=== PATIENT | male | born 1925 | race Caucasian/White ===

== ENCOUNTER 2016-05-10 21:21 | Inpatient (IN) | payer MEDICARE, BC ==
[2016-05-10] MEDS ORDERED: ASPIRIN 81 MG CHEW PO STA (21:45)
[2016-05-10] MEDS ORDERED: SODIUM CHLORIDE 0.9% 1,000 ML IV STA (21:45)
[2016-05-10] MEDS ORDERED: ONDANSETRON 4 MG/2 ML VIAL IVP STA (21:45)
[2016-05-10] MEDS ORDERED: NITROGLYCERIN OINT 1 INCH/GM PACKET TOPICAL STA (21:45)
--- NOTE | 2016-05-10 21:52 | ED ---
General Adult HPI - General Chief complaint: Chest Pain Stated complaint: chest pains Time Seen by Provider: 05/10/16 21:27 Source: patient, family, EMS, RN notes reviewed Mode of arrival: EMS Limitations: no limitations - History of Present Illness Initial comments: Patient is a pleasant 89-year-old male presenting to the emergency department complaining of chest discomfort. Onset of symptoms was less than an hour prior to arrival. Discomfort is currently 4/10. Patient does have associated nausea and did vomit twice. No dyspnea. No diaphoresis. No history of some her symptoms previous a. Patient states that has been several years since he has had a stress test. No leg pain or swelling. - Related Data Home Medications Medication Instructions Recorded Confirmed Aspirin EC [Ecotrin Low Dose] 81 mg PO DAILY 05/10/16 05/10/16 Atorvastatin [Lipitor] 20 mg PO HS 05/10/16 05/10/16 B Complex & C No.20/Folic Acid 1 mg PO DAILY 05/10/16 05/10/16 [Nephrocaps Softgel] Folic Acid 0.4 mg PO DAILY 05/10/16 05/10/16 Losartan Potassium [Cozaar] 50 mg PO DAILY 05/10/16 05/10/16 Metoprolol Succinate (ER) [Toprol 50 mg PO DAILY 05/10/16 05/10/16 Xl] Allergies Allergy/AdvReac Type Severity Reaction Status Date / Time No Known Allergies Allergy Verified 05/10/16 21:47 Review of Systems ROS Statement: Those systems with pertinent positive or pertinent negative responses have been documented in the HPI. ROS Other: All systems not noted in ROS Statement are negative. Constitutional: Denies: fever Eyes: Denies: eye pain ENT: Denies: ear pain Respiratory: Denies: cough, dyspnea Cardiovascular: Reports: chest pain Endocrine: Denies: fatigue Gastrointestinal: Reports: nausea, vomiting. Denies: abdominal pain Genitourinary: Denies: dysuria Musculoskeletal: Denies: back pain Skin: Denies: rash Neurological: Denies: weakness Past Medical History Past Medical History: Coronary Artery Disease (CAD), Hypertension Additional Past Medical History / Comment(s): high cholesterol History of Any Multi-Drug Resistant Organisms: None Reported Additional Past Surgical History / Comment(s): cataract, left hip Past Psychological History: No Psychological Hx Reported Smoking Status: Never smoker Past Alcohol Use History: None Reported Past Drug Use History: None Reported General Exam Limitations: no limitations General appearance: alert, in no apparent distress Head exam: Present: atraumatic Eye exam: Present: normal appearance, PERRL ENT exam: Present: normal oropharynx Neck exam: Present: normal inspection Respiratory exam: Present: normal lung sounds bilaterally Cardiovascular Exam: Present: regular rate, normal rhythm Expanded Peripheral pulses: 2+: Radial (R), Radial (L), Posterior Tibialis (R), Posterior Tibialis (L) GI/Abdominal exam: Present: soft. Absent: tenderness Extremities exam: Present: normal inspection. Absent: pedal edema, calf tenderness Neurological exam: Present: alert Psychiatric exam: Present: normal affect, normal mood Skin exam: Absent: rash Course Vital Signs 05/10/16 05/10/16 05/10/16 21:24 21:52 22:08 Temperature 98 F Pulse Rate 61 50 L 53 L Respiratory 14 20 18 Rate Blood Pressure 139/63 87/54 O2 Sat by Pulse 92 L 95 97 Oximetry EKG Findings - EKG Comments: EKG Findings:: Sinus bradycardia 55. QRS 122. QT 448. QTC 428. Normal axis. Right bundle branch block. No acute ST change. Medical Decision Making - Medical Decision Making Patient reexamined and improved. Discomfort and nausea are mild at this time. Patient and family were updated on results and plan. Case was discussed in detail with Dr. Silverman, who will admit for Dr. Barajas. Consult placed for Dr. Walker who patient has previously seen with gastroenterology. - Lab Data Result diagrams: 05/10/16 21:50 05/10/16 21:50 Lab Results 05/10/16 05/10/16 05/10/16 Range/Units 21:50 21:50 21:50 WBC 10.8 H (3.8-10.6) k/uL RBC 3.30 L (4.30-5.90) m/uL Hgb 11.2 L (13.0-17.5) gm/dL Hct 34.0 L (39.0-53.0) % MCV 103.2 H (80.0-100.0) fL MCH 34.0 (25.0-35.0) pg MCHC 33.0 (31.0-37.0) g/dL RDW 13.8 (11.5-15.5) % Plt Count 270 (150-450) k/uL Neutrophils % 80 % Lymphocytes % 14 % Monocytes % 2 % Eosinophils % 2 % Basophils % 1 % Neutrophils # 8.6 H (1.3-7.7) k/uL Lymphocytes # 1.5 (1.0-4.8) k/uL Monocytes # 0.3 (0-1.0) k/uL Eosinophils # 0.2 (0-0.7) k/uL Basophils # 0.1 (0-0.2) k/uL Macrocytosis Slight PT (9.0-12.0) sec INR (<1.1) APTT (22.0-30.0) sec Sodium 137 (137-145) mmol/L Potassium 4.2 (3.5-5.1) mmol/L Chloride 103 (98-107) mmol/L Carbon Dioxide 23 (22-30) mmol/L Anion Gap 11 mmol/L BUN 22 H (9-20) mg/dL Creatinine 1.40 H (0.66-1.25) mg/dL Est GFR (MDRD) Af Amer 58 (>60 ml/min/1.73 sqM) Est GFR (MDRD) Non-Af 48 (>60 ml/min/1.73 sqM) Glucose 120 H (74-99) mg/dL Calcium 9.1 (8.4-10.2) mg/dL Magnesium 1.7 (1.6-2.3) mg/dL Total Bilirubin 1.2 (0.2-1.3) mg/dL AST 162 H (17-59) U/L ALT 89 H (21-72) U/L Alkaline Phosphatase 104 (38-126) U/L Total Creatine Kinase 37 L (55-170) U/L CK-MB (CK-2) 0.4 (0.0-2.4) ng/mL CK-MB (CK-2) Rel Index 1.1 Troponin I <0.012 (0.000-0.034) ng/mL Total Protein 6.7 (6.3-8.2) g/dL Albumin 3.7 (3.5-5.0) g/dL Amylase (30-110) U/L Lipase (23-300) U/L Gastric Occult Blood (Negative) 05/10/16 05/10/16 05/10/16 Range/Units 21:50 21:50 22:21 WBC (3.8-10.6) k/uL RBC (4.30-5.90) m/uL Hgb (13.0-17.5) gm/dL Hct (39.0-53.0) % MCV (80.0-100.0) fL MCH (25.0-35.0) pg MCHC (31.0-37.0) g/dL RDW (11.5-15.5) % Plt Count (150-450) k/uL Neutrophils % % Lymphocytes % % Monocytes % % Eosinophils % % Basophils % % Neutrophils # (1.3-7.7) k/uL Lymphocytes # (1.0-4.8) k/uL Monocytes # (0-1.0) k/uL Eosinophils # (0-0.7) k/uL Basophils # (0-0.2) k/uL Macrocytosis PT 10.7 (9.0-12.0) sec INR 1.1 (<1.1) APTT 23.2 (22.0-30.0) sec Sodium (137-145) mmol/L Potassium (3.5-5.1) mmol/L Chloride (98-107) mmol/L Carbon Dioxide (22-30) mmol/L Anion Gap mmol/L BUN (9-20) mg/dL Creatinine (0.66-1.25) mg/dL Est GFR (MDRD) Af Amer (>60 ml/min/1.73 sqM) Est GFR (MDRD) Non-Af (>60 ml/min/1.73 sqM) Glucose (74-99) mg/dL Calcium (8.4-10.2) mg/dL Magnesium (1.6-2.3) mg/dL Total Bilirubin (0.2-1.3) mg/dL AST (17-59) U/L ALT (21-72) U/L Alkaline Phosphatase (38-126) U/L Total Creatine Kinase (55-170) U/L CK-MB (CK-2) (0.0-2.4) ng/mL CK-MB (CK-2) Rel Index Troponin I (0.000-0.034) ng/mL Total Protein (6.3-8.2) g/dL Albumin (3.5-5.0) g/dL Amylase 2010 H* (30-110) U/L Lipase >70695 H (23-300) U/L Gastric Occult Blood Positive (Negative) - Radiology Data Radiology results: image reviewed (Chest x-ray shows no acute process.) Disposition Clinical Impression: Acute pancreatitis Disposition: ADMITTED IP TO THIS HOSP
[2016-05-10] MEDS ORDERED: METOCLOPRAMIDE 5 MG/ML 2 ML VIAL IVP STA (21:59)
[2016-05-10] MEDS ORDERED: FAMOTIDINE 20 MG/2 ML VIAL IV STA (21:59)
[2016-05-10 22:03] LABS: Basophils # (A) 0.1 k/uL (0-0.2); Basophils % (A) 1 %; CH 34.8; CHCM 33.9; Eosinophils # (A) 0.2 k/uL (0-0.7); Eosinophils % (A) 2 %; HDW 2.64; HGB 11.2 gm/dL (13.0-17.5); Luc # (Auto) 0.15; Luc % (Auto) 1; Lymphocytes # (A) 1.5 k/uL (1.0-4.8); Lymphocytes % (A) 14 %; MCV 103.2 fL (80.0-100.0); Macrocytosis Slight; Mean Platelet Volume 8.1; Monocytes # (A) 0.3 k/uL (0-1.0); Monocytes % (A) 2 %; Neutrophils # (A) 8.6 k/uL (1.3-7.7); Neutrophils % (A) 80 %; RDW 13.8 % (11.5-15.5); WBC 10.8 k/uL (3.8-10.6); WBC (Perox) 10.76
[2016-05-10 22:11] LABS: INR 1.1 (<1.1); Partial Thromboplastin Time 23.2 sec (22.0-30.0); Prothrombin Time 10.7 sec (9.0-12.0)
[2016-05-10 22:12] LABS: Calcium 9.1 mg/dL (8.4-10.2); Magnesium 1.7 mg/dL (1.6-2.3); Potassium 4.2 mmol/L (3.5-5.1); Total Bilirubin 1.2 mg/dL (0.2-1.3); Total Protein 6.7 g/dL (6.3-8.2)
[2016-05-10 22:29] LABS: Creatine Kinase 37 U/L (55-170)
[2016-05-10 22:42] LABS: Creatine Kinase MB 0.4 ng/mL (0.0-2.4); Troponin I <0.012 ng/mL (0.000-0.034)
[2016-05-10 22:59] LABS: Amylase 2011 U/L (30-110)
--- NOTE | 2016-05-10 23:11 | XR ---
EXAMINATION TYPE: XR chest 2V DATE OF EXAM: 05/10/2016 10:40 PM COMPARISON: 09/06/2010, CT abdomen and pelvis 09/10/2010. HISTORY: Vomiting chest pain history of CT TECHNIQUE: Frontal and lateral views of the chest are obtained. FINDINGS: Mild chronic interstitial lung changes are suggested bilaterally. Faint opacities are noted in the ri ght midlung field and there is possibility of mild active infiltrates in the right perihilar area. No pneumothorax or pleural effusion is noted. Faint nodularity is noted superimposing the right lower lung field and is probably related to old hea led calcified granuloma measuring approximately 1.8 cm. This could also be related to costochondral c alcification. Atherosclerotic calcification is noted in the aortic arch. The cardiac silhouette size is within normal limits. The osseous structures are intact. IMPRESSION: 1. Possible mild right perihilar lung infiltrates. 2. Chronic lung changes. 3. Possible calcified nodule or costochondral calcification in the right lung base. [facility] helpful in the evaluation on non-emergency basis.
[2016-05-10] MEDS ORDERED: NALOXONE 0.4 MG/ML 1 ML VIAL IV PRN (23:48)
[2016-05-10] MEDS ORDERED: ONDANSETRON 4 MG/2 ML VIAL IVP PRN (23:48)
[2016-05-10 23:49] LABS: Appearance,Urine Cloudy (Clear); Bacteria,Urine Few /hpf; Bilirubin,Urine Negative (Negative); Glucose,Urine (UA) Negative (Negative); Ketones,Urine Negative (Negative); Leukocyte Esterase,Urine Large (Negative); Mucus,Urine Rare /hpf; Nitrite,Urine Positive (Negative); Particle Count 26368; Protein,Urine Negative (Negative); RBC,Urine 2 /hpf (0-5); Specific Gravity,Urine 1.007 (1.001-1.035); UA Billing (MACRO vs. MICRO) MICRO; Urobilinogen,Urine <2.0 mg/dL (<2.0); WBC,Urine 120 /hpf (0-5)
[2016-05-11] MEDS: MORPHINE SULFATE 4 MG/ML SYRINGE IV PRN ×3 (00:04→23:39)
[2016-05-11] MEDS: SODIUM CHLORIDE 0.9% 1,000 ML IV SCH ×3 (00:05→17:08)
[2016-05-11 02:36] VITALS: BMI 19.0
[2016-05-11 03:59] LABS: Calcium 8.5 mg/dL (8.4-10.2); Potassium 4.3 mmol/L (3.5-5.1); Total Bilirubin 1.1 mg/dL (0.2-1.3); Total Protein 5.8 g/dL (6.3-8.2)
--- NOTE | 2016-05-11 09:47 | US ---
EXAMINATION TYPE: US abdomen limited DATE OF EXAM: 05/11/2016 8:33 AM COMPARISON: NONE CLINICAL HISTORY: 84-year-old male with pain, evaluate right upper quadrant and pancreas. TECHNIQUE: Multiple sonographic images of the right upper quadrant were obtained. FINDINGS: Liver Length: 11.9 cm Gallbladder Wall: 0.5 cm CBD: 1.1 cm Right Kidney: 7.4 x 3.7 x 3.2 cm Pancreas: Obscured by extensive overlying bowel gas Liver: Overall homogeneous echotexture. No focal lesion seen. Gallbladder: There is circumferential gallbladder wall thickening at 5 mm. While the gallbladder is full, it is not abnormally distended. No pericholecystic fluid seen. No shadowing calculi. Evidence for sonographic Marsh's sign: No CBD: dilated Right Kidney: Atrophic without hydronephrosis. IMPRESSION: 1. Nonspecific gallbladder wall thickening. No ancillary findings of acute cholecystitis. Correlate f or potential reactive causes of wall thickening such as fluid overload states or any adjacent inflamm ation such as from the liver or pancreas. 2. Dilatation of the bile duct at 1.1 cm. Correlate with alkaline phosphatase and bilirubin levels to exclude biliary obstruction. 3. The pancreas was obscured by bowel gas and is not assessed on this exam.
[2016-05-11] MEDS: PANTOPRAZOLE 40 MG/10 ML VIAL IV SCH (11:58)
--- NOTE | 2016-05-12 07:23 | HP ---
DATE OF ADMISSION: 05/10/2016 DATE OF SERVICE: 05/11/2016 CHIEF COMPLAINT: Chest pain, nausea and vomiting. This is an 89-year-old white male who apparently started feeling chest pain, nausea and vomiting of one hour duration and patient was brought to the emergency room. In the ER, his EKG did not show any acute changes. Cardiac enzymes were within normal limits. WBC 10.8, hemoglobin 11.2, platelet count 278,000, sodium 137, potassium 4.2, creatinine 1.40, BUN 22, glucose 120 and chest x-ray within normal limits. The serum blood chemistry also showed that his amylase and lipase were markedly elevated. Amylase was 2011 and lipase more than 20,000. The patient was admitted to the hospital for further evaluation and treatment. Patient had no blood in the vomitus and he denies any diarrhea or rectal bleeding, but his stool was positive occult blood. His past medical history reveals that he has coronary artery disease and has had a stent placement in the past. He also has hypertensive cardiovascular disease, hyperlipidemia and he also has a history of acute pancreatitis about 8 years ago. His current medications include: 1. Aspirin 81 mg p.o. daily. 2. Lipitor 20 mg p.o. daily. 3. He is also taking vitamins. 4. Losartan. 5. Potassium 50 mg p.o. daily. 6. Metoprolol ER 50 mg p.o. daily. He does not smoke and he does not drink alcohol except socially. FAMILY HISTORY: Noncontributory. REVIEW OF SYSTEMS: Patient denies any headache. Appetite has been poor lately. He has chest pain as mentioned before and also has had nausea and vomiting. He has no polyuria or dysuria. He has no neurological symptoms. PHYSICAL EXAMINATION: Reveals an 89-year-old white male, well nourished and well developed. He is getting IV morphine for pain control. There is no jaundice. There is no generalized lymphadenopathy. There are no petechiae or bruises. His temperature is 98, pulse 62 per minute, regular. Blood pressure 138/64, pulse ox 92%. There is no jaundice. There is no generalized lymphadenopathy. There are no petechiae or bruises. Examination of the ENT negative. Neck is supple. There is no jugular venous distention. There is no goiter. There is no carotid bruit. Heart is in sinus rhythm. Lungs are clear to auscultation and percussion. Abdomen is soft and nontender. There is no mass palpable. Examination of the lower extremities revealed no pitting edema. Neurologic examination does not reveal any localizing signs. IMPRESSION: 1. Acute pancreatitis with a markedly elevated amylase and lipase. 2. Positive occult blood in the ( ). 3. Dehydration. 4. Mild renal failure, possibly due to dehydration. 5. History of coronary artery disease with a past history of stent placement. 6. Hypertensive cardiovascular disease. 7. Abnormal upper abdominal ultrasound and CT scan showing gallbladder wall thickening. PLAN: The patient will be admitted to the hospital. Will give him IV fluids and will have adequate pain control and will have Gastroenterology consultation. Patient has a past history of pancreatitis and patient has been seeing Dr. Marisabel Ku. Dr. Ku has already been consulted. Prognosis is guarded. The diagnoses, prognosis, and therapeutic plans were discussed in detail with the patient and also with the patient's .
[2016-05-12 07:45] LABS: Basophils % (A) 0 %; CH 34.4; CHCM 32.6; Eosinophils # (A) 0.1 k/uL (0-0.7); Eosinophils % (A) 1 %; HCT 33.4 % (39.0-53.0); Luc # (Auto) 0.19; Luc % (Auto) 2; Lymphocytes # (A) 0.9 k/uL (1.0-4.8); Lymphocytes % (A) 7 %; MCH 34.8 pg (25.0-35.0); MCHC 32.8 g/dL (31.0-37.0); MCV 106.1 fL (80.0-100.0); Macrocytosis Moderate; Monocytes # (A) 0.6 k/uL (0-1.0); Monocytes % (A) 4 %; Neutrophils # (A) 10.8 k/uL (1.3-7.7); Neutrophils % (A) 86 %; RBC 3.15 m/uL (4.30-5.90); RDW 13.7 % (11.5-15.5); WBC 12.5 k/uL (3.8-10.6); WBC (Perox) 12.79
[2016-05-12] MEDS: SODIUM CHLORIDE 0.9% 1,000 ML IV SCH ×3 (07:46→16:30)
[2016-05-12] MEDS: PANTOPRAZOLE 40 MG/10 ML VIAL IV SCH (07:47)
[2016-05-12 08:12] LABS: Calcium 8.1 mg/dL (8.4-10.2); Potassium 4.5 mmol/L (3.5-5.1); Total Protein 5.7 g/dL (6.3-8.2)
--- NOTE | 2016-05-12 11:36 | P.CONS ---
History of Present Illness - Reason for Consult Consult date: 05/12/16 Pancreatitis Requesting physician: Checo Silverman - History of Present Illness 89-year-old gentleman patient of Dr. Barajas with a past history of hypertension, hyperlipidemia, and CAD. Patient presents with acute upper chest abdominal with nausea vomiting that started 2 days ago. Consultation requested for pancreatitis. Patient thinks he may have had a history of pancreatitis he is unsure. Admission lipase greater than 20,000. Amylase 2011. Yesterday lipase 11,578. Amylase 1553. Repeat pancreatic enzymes this morning not obtained. Admission liver enzymes total bilirubin 1.2. AST 162. ALT 89. Alkaline phosphatase 104. Current total bilirubin 1.0. AST 72. ALT 82. Alkaline phosphatase 81. Ultrasound abdomen reported gallbladder wall 0.5 cm without pericholecystic fluid. No shadowing calculi. CBD 1.1 cm. Liver length 11.9 cm. No focal liver lesions seen. Homogeneous echotexture. No changes in medications. No history of alcoholism. He has been afebrile. White count today 12.5. Hemoglobin 11. Hemoccult gastric positive. No history of peptic ulcer disease. Denies melena or hematochezia. Takes baby aspirin daily. No NSAID usage. Review of Systems Constitutional: Denies fever, chills, sweats, weight gain, or loss. HEENT: Negative for migraines, blurred vision or loss, earaches, drainage, tinnitus, oral mucosal lesions, dysphagia, or odynophagia. Cardiac: CAD. Hyperlipidemia. Hypertension. Negative for chest pain, arrhythmias, or palpitation. Respiratory: Negative for shortness of breath, hemoptysis, cough, or sputum production. Gastrointestinal: See HPI for pertinent findings. Genitourinary: Negative for hematuria, urgency, frequency, polyuria, dysuria, or penile discharge. Musculoskeletal: Negative for muscle aches, swelling, arthritis, and arthralgias. Neurologic: Negative for stroke or TIA. Endocrine: Negative for thyroid problems. Skin: Negative for rash or itching. Psychiatric: Negative history for depression and anxiety All systems: negative (See HPI) Past Medical History Past Medical History: Coronary Artery Disease (CAD), Hyperlipidemia, Hypertension Additional Past Medical History / Comment(s): . History of Any Multi-Drug Resistant Organisms: None Reported Additional Past Surgical History / Comment(s): cataract, left hip Past Anesthesia/Blood Transfusion Reactions: No Reported Reaction Past Psychological History: No Psychological Hx Reported Smoking Status: Never smoker Past Alcohol Use History: None Reported Past Drug Use History: None Reported - Past Family History Son(s) Family Medical History: No Reported History Medications and Allergies Home Medications Medication Instructions Recorded Confirmed Type Aspirin EC [Ecotrin Low Dose] 81 mg PO DAILY 05/10/16 05/11/16 History B Complex & C No.20/Folic Acid 1 mg PO DAILY 05/10/16 05/11/16 History [Nephrocaps Softgel] Folic Acid 0.4 mg PO DAILY 05/10/16 05/11/16 History Losartan Potassium [Cozaar] 50 mg PO DAILY 05/10/16 05/11/16 History Metoprolol Succinate (ER) [Toprol 50 mg PO DAILY 05/10/16 05/11/16 History Xl] Atorvastatin [Lipitor] 10 mg PO HS 05/11/16 05/11/16 History Allergies Allergy/AdvReac Type Severity Reaction Status Date / Time No Known Allergies Allergy Verified 05/11/16 08:41 Physical Exam Vitals: Vital Signs Temp Pulse Resp BP Pulse Ox 05/12/16 08:00 78 18 05/12/16 07:00 99.2 F 78 18 103/55 95 05/11/16 22:55 96.8 F L 75 16 103/55 99 05/11/16 16:00 74 16 05/11/16 15:00 98.2 F 74 16 106/57 94 L Intake and Output 05/11/16 05/12/16 05/12/16 22:59 06:59 14:59 Intake Total 590 880 Output Total 850 300 Balance -260 880 -300 Intake: IV 880 Sodium Chloride 0.9% 1, 880 000 ml @ 110 mls/hr IV . Q9H6M [facility] Rx#:[id number] Oral 590 Output: Urine 850 300 Other: Voiding Method Self-Catheterization Self-Catheterization Self-Catheterization # Voids 1 1 Weight 63.503 kg General appearance: The patient is alert, oriented, in no acute distress. HET: Head is normocephalic and atraumatic. Pupils are equal and reactive. Oropharynx is clear without lesions. Neck: Supple without lymphadenopathy. Trachea midline. Heart: S1 S2. Regular rate and rhythm. Lungs: No crackles or wheezes are heard. Abdomen: Soft, midepigastric tenderness, nondistended with bowel sounds. No peritoneal signs. No palpable organomegaly or masses. Extremities: Normal skin color and turgor. No cyanosis, rash, ulceration, clubbing, or edema. Radial and pedal pulses are 2/4 bilaterally. Neurological: No focal deficits. Strength and sensation are grossly intact. Results CBC & Chem 7: 05/12/16 07:34 05/12/16 07:34 Labs: Abnormal Lab Results - Last 24 Hours (Table) 05/12/16 05/12/16 Range/Units 07:34 07:34 WBC 12.5 H (3.8-10.6) k/uL RBC 3.15 L (4.30-5.90) m/uL Hgb 11.0 L (13.0-17.5) gm/dL Hct 33.4 L (39.0-53.0) % MCV 106.1 H (80.0-100.0) fL Neutrophils # 10.8 H (1.3-7.7) k/uL Lymphocytes # 0.9 L (1.0-4.8) k/uL Chloride 112 H (98-107) mmol/L Carbon Dioxide 20 L (22-30) mmol/L BUN 23 H (9-20) mg/dL Creatinine 1.43 H (0.66-1.25) mg/dL Glucose 67 L (74-99) mg/dL Calcium 8.1 L (8.4-10.2) mg/dL AST 72 H (17-59) U/L ALT 82 H (21-72) U/L Total Protein 5.7 L (6.3-8.2) g/dL Albumin 2.7 L (3.5-5.0) g/dL US - abdomen: report reviewed (Reviewed by Dr. Anaya) Assessment and Plan (1) Acute pancreatitis Narrative/Plan: 89-year-old gentleman admitted with acute pancreatitis with mild transaminitis etiology unclear ultrasound abdomen reporting no evidence of calculi with dilated CBD 1.1 cm. Differentials to consider peptic ulcer disease with positive gastric occult blood possible microlithiasis possible idiopathic. Status: Acute Plan: 1. MRCP; based on results possible ERCP if indicated once pancreatitis enzymes improve. 2. Hepatitis panel. Supportive measures. Continue GI prophylaxis. Hold aspirin. We'll request stool Hemoccult testing. Follow CBC closely. 3. We'll follow with you. Thank you for this kind referral and the opportunity to participate in the care of your patient. This consultation was discussed with Dr. Anaya. The impression and plan of care have been directed as dictated.
[2016-05-12 15:18] LABS: Hepatitis B Surface Ag Index 0.08
[2016-05-12 15:23] LABS: Hepatitis B Core IgM Index 0.05
[2016-05-12 15:35] LABS: Hepatitis C Virus IgG Index 0.02
[2016-05-12 15:46] LABS: Hepatitis C Virus IgG Ab Negative (Negative)
[2016-05-12 15:56] LABS: Amylase 246 U/L (30-110)
--- NOTE | 2016-05-12 23:19 | MR ---
EXAMINATION TYPE: MR MRCP DATE OF EXAM: 05/12/2016 7:59 PM COMPARISON: NONE HISTORY: hepatitis pancreatitis Standard multiplanar, multisequence MRI departmental protocol FINDINGS: Gallbladder has fairly normal size and contour. I see no gallbladder wall thickening. The i ntrahepatic bile ducts are not dilated. Common bile duct measures up to 9 mm. The pancreatic duct is not dilated. I see no definite filling defect in the common bile duct. There is no evidence of a panc reatic mass. Liver shows no focal defect. Spleen appears normal. Kidneys show no hydronephrosis. There is no sign of retroperitoneal adenopathy. There is aneurysm of the lower abdominal aorta that measures up to 4.2 cm. There is mild thoracolumbar dextroscoliosis. I see no discrete liver mass. IMPRESSION: There is mild ectasia of the common bile duct that could relate to some mild chronic gallbladder dysf unction. No filling defects seen. There is clearing of the hydronephrosis compared to old CT scan of 09/10/2010. There is a 4.2 cm abdominal aortic aneurysm that is increased from 3.7 cm on the old CT scan.
[2016-05-13] MEDS: MORPHINE SULFATE 4 MG/ML SYRINGE IV PRN (02:29)
[2016-05-13] MEDS: SODIUM CHLORIDE 0.9% 1,000 ML IV SCH ×3 (04:34→23:15)
[2016-05-13] MEDS: PANTOPRAZOLE 40 MG/10 ML VIAL IV SCH (08:09)
--- NOTE | 2016-05-13 10:06 | P.PN ---
Subjective Principal diagnosis: Pancreatitis 89-year-old gentleman admitted with acute pancreatitis. MRI reported no evidence of mass or biliary obstruction. [place] reticulocyte enzymes improve. Denies abdominal pain.T-max 100.7. Objective - Vital Signs Vital signs: Vital Signs Temp 98 F 05/13/16 07:00 Pulse 73 05/13/16 07:00 Resp 16 05/13/16 07:00 BP 142/64 05/13/16 07:00 Pulse Ox 95 05/13/16 07:00 Intake & Output 05/12/16 05/13/16 05/13/16 18:59 06:59 18:59 Intake Total 20 1560 Output Total 300 600 800 Balance -280 960 -800 Intake: IV 1320 Sodium Chloride 0.9% 1, 1320 000 ml @ 110 mls/hr IV . Q9H6M [facility] Rx#:[id number] Oral 20 240 Output: Urine 300 600 800 Straight 600 Other: Voiding Method Self-Catheterization Self-Catheterization # Voids 1 - Exam General appearance: The patient is alert, oriented, in no acute distress. HET: Head is normocephalic and atraumatic. Pupils are equal and reactive. Oropharynx is clear without lesions. Neck: Supple without lymphadenopathy. Trachea midline. Heart: S1 S2. Regular rate and rhythm. Lungs: No crackles or wheezes are heard. Abdomen: Soft, nontender, nondistended with bowel sounds. No peritoneal signs. No palpable organomegaly or masses. Extremities: Normal skin color and turgor. No cyanosis, rash, ulceration, clubbing, or edema. Radial and pedal pulses are 2/4 bilaterally. Neurological: No focal deficits. Strength and sensation are grossly intact. - Labs CBC & Chem 7: 05/12/16 07:34 05/12/16 07:34 Labs: Abnormal Lab Results - Last 24 Hours (Table) 05/12/16 Range/Units 14:58 Amylase 246 H (30-110) U/L Lipase 472 H (23-300) U/L Assessment and Plan (1) Acute pancreatitis Narrative/Plan: 89-year-old gentleman admitted with acute pancreatitis with mild transaminitis etiology unclear ultrasound abdomen reporting no evidence of calculi with dilated CBD 1.1 cm. Differentials to consider peptic ulcer disease with positive gastric occult blood possible microlithiasis possible idiopathic. MRCP reported no evidence of pancreatic mass or biliary obstruction. Status: Acute Plan: 1. MRCP results reviewed. Pancreatic liver enzymes improving. 2. Advance diet. Assessment and plan of care discussed with Dr. Anaya.
[2016-05-14] MEDS: PANTOPRAZOLE 40 MG/10 ML VIAL IV SCH (07:19)
[2016-05-14] MEDS: SODIUM CHLORIDE 0.9% 1,000 ML IV SCH (07:52)
[2016-05-14] MEDS: METOPROLOL SUCCINATE (ER) 50 MG TAB.ER.24H PO SCH (09:32)
[2016-05-14] MEDS: LOSARTAN 50 MG TAB PO SCH (09:34)
[2016-05-14] MEDS: FOLIC ACID 1 MG TAB PO SCH (09:34)
[2016-05-14] MEDS: FOLIC ACID-VIT B COMPLEX-VIT C 1 CAP PO SCH (09:34)
[2016-05-14] MEDS: ASPIRIN 81 MG CHEW PO SCH (09:34)
--- NOTE | 2016-05-14 09:47 | CDI ---
In responding to this query, please exercise your independent professional judgment. The [facility] Coding Staff and Clinical Documentation Specialists appreciate your assistance in clarifying documentation, maintaining compliance with coding guidelines, accurately documenting patients condition and capturing severity of illness. The fact that a question is asked does not imply that any particular answer is desired or expected. Communication forms are a method of clarifying documentation and are not made part of the Legal Health Record. Thank you in advance for your clarification. Last Revision, January 2015 Edi Narayanan [address] [facility] [place] [address] Documentation Clarification Form Date: 05/14/2016 9:22:00 AM From: Poppyluís Nance Admit Date: 05/10/2016 11:48:00 PM Patient Name: Russell Zuniga Visit Number: [id number] Discharge Date: Dr. Job Lloyd Patient presents with a BUN 22 CR 1.40 GFR of 48 05/11/16 BUN 24, C5 1.60 GFR 41 05/12/16 BUN 23, CR 1.43 GFR 47 History/Risk Factors: Coronary artery disease, Hypertensive cardiovascular disease, Hyperlipidemia Clinical Indicators: Presents with complaints of chest pain with nausea and vomiting. The serum blood chemistry also showed that his amylase and lipase were markedly elevated. His appetite has been poor. VS on admission: 139/63 50 20 Temp 98 95 % 2/L Impression in your H&P: Mild renal failure, possible due to dehydration Treatment: IVF .0% @ 110mls/hr Zofran IV PRN Monitor Labs NPO, Advance diet per GI In order to capture the severity of condition, please clarify if the condition signifies: Acute renal failure Please specify (if known): Cortical, Medullary, or Tubular Necrosis? Acute kidney injury Acute on chronic renal failure Chronic renal failure, please stage Chronic kidney disease (CKD) and please stage Stage 1 GFR >90 Stage 2 GFR 60-89 Stage 3 GFR 30-59 Stage 4 GFR 15-29 Stage 5 GFR <15 ESRD Unable to determine Other, specify Please document in your progress notes and discharge summary in order to capture severity of illness and risk of mortality. Include clinical findings that support your diagnosis. FYI: Press F11 to launch patient chart. Place X here if this finding has no clinical significance, is not applicable or if you are not able to provide any additional documentation. MTDD
--- NOTE | 2016-05-14 10:40 | P.PN ---
Subjective Principal diagnosis: Pancreatitis 89-year-old gentleman admitted with acute pancreatitis. Tolerating regular diet. Afebrile overnight. Denies abdominal pain. Objective - Vital Signs Vital signs: Vital Signs Temp 97.1 F L 05/13/16 22:13 Pulse 91 05/14/16 00:55 Resp 20 05/14/16 00:55 BP 139/59 05/14/16 00:55 Pulse Ox 93 L 05/14/16 00:55 Intake & Output 05/13/16 05/14/16 05/14/16 18:59 06:59 18:59 Intake Total 1860 Output Total 1300 475 700 Balance -1300 1385 -700 Weight 63.503 kg Intake: IV 1320 Sodium Chloride 0.9% 1, 1320 000 ml @ 110 mls/hr IV . Q9H6M NÉSTOR Rx#:[id number] Oral 540 Output: Urine 1300 475 700 Straight 475 Other: Voiding Method Self-Catheterization Self-Catheterization # Voids 1 - Exam General appearance: The patient is alert, oriented, in no acute distress. HET: Head is normocephalic and atraumatic. Pupils are equal and reactive. Oropharynx is clear without lesions. Neck: Supple without lymphadenopathy. Trachea midline. Heart: S1 S2. Regular rate and rhythm. Lungs: No crackles or wheezes are heard. Abdomen: Soft, nontender, nondistended with bowel sounds. No peritoneal signs. No palpable organomegaly or masses. Extremities: Normal skin color and turgor. No cyanosis, rash, ulceration, clubbing, or edema. Radial and pedal pulses are 2/4 bilaterally. Neurological: No focal deficits. Strength and sensation are grossly intact. - Labs CBC & Chem 7: 05/12/16 07:34 05/12/16 07:34 Assessment and Plan (1) Acute pancreatitis Narrative/Plan: 89-year-old gentleman admitted with acute pancreatitis with mild transaminitis etiology unclear ultrasound abdomen reporting no evidence of calculi with dilated CBD 1.1 cm. Possible passage of microlithiasis. MRCP reported no evidence of pancreatic mass, gallstones, or biliary obstruction. Status: Acute Plan: 1. Agreeable for discharge. 2. Return to GI office in 7-10 days for reevaluation. Assessment and plan of care discussed with Dr. Anaya.
[2016-05-14] MEDS ORDERED: POLYETHYLENE GLYCOL 3350 17 GM POWD.PACK PO STA (13:24)
[2016-05-14] MEDS: DOCUSATE 100 MG CAP PO SCH ×2 (15:03→20:02)
--- NOTE | 2016-05-14 18:35 | P.GSCN ---
History of Present Illness History of present illness: 89 old white male, patient has been admitted with the diagnosis of acute pancreatitis patient had ultrasound of the abdomen and also had a MRI which showed 4.2 cm abdominal aortic aneurysm I was consulted for abdominal aortic aneurysm evaluation patient is under care of Dr. Barajas no history of back pain ultrasound showed no evidence of stone in the gallbladder and graft medical history history of hypertension hyperlipidemia Neck examination neck is supple no bruit appreciated Chest chest is clear first and second sound are normal Abdomen soft nontender aorta is nontender Vascular examination brachial radial and femoral pulses are present Impression is infrarenal abdominal aortic aneurysm asymptomatic from a vascular point of view patient can be discharged patient will be seen in a month in my office thank very much Past Medical History Past Medical History: Coronary Artery Disease (CAD), Hyperlipidemia, Hypertension Additional Past Medical History / Comment(s): . History of Any Multi-Drug Resistant Organisms: None Reported Additional Past Surgical History / Comment(s): cataract, left hip Past Anesthesia/Blood Transfusion Reactions: No Reported Reaction Past Psychological History: No Psychological Hx Reported Smoking Status: Never smoker Past Alcohol Use History: None Reported Past Drug Use History: None Reported - Past Family History Son(s) Family Medical History: No Reported History Medications and Allergies Home Medications Medication Instructions Recorded Confirmed Type Aspirin EC [Ecotrin Low Dose] 81 mg PO DAILY 05/10/16 05/11/16 History B Complex & C No.20/Folic Acid 1 mg PO DAILY 05/10/16 05/11/16 History [Nephrocaps Softgel] Folic Acid 0.4 mg PO DAILY 05/10/16 05/11/16 History Losartan Potassium [Cozaar] 50 mg PO DAILY@1200 05/10/16 05/14/16 History Metoprolol Succinate (ER) [Toprol 50 mg PO DAILY 05/10/16 05/11/16 History Xl] Atorvastatin [Lipitor] 10 mg PO HS 05/11/16 05/11/16 History Allergies Allergy/AdvReac Type Severity Reaction Status Date / Time No Known Allergies Allergy Verified 05/11/16 08:41 Surgical - Exam Vital Signs Temp Pulse Resp Pulse Ox 98 F 61 14 92 L 05/10/16 21:24 05/10/16 21:24 05/10/16 21:24 05/10/16 21:24 Results - Labs 05/12/16 07:34 05/12/16 07:34
[2016-05-14] MEDS: POLYETHYLENE GLYCOL 3350 17 GM POWD.PACK PO SCH (20:02)
[2016-05-14] MEDS ORDERED: ATORVASTATIN 10 MG TAB PO SCH (21:00)
[2016-05-14 22:49] VITALS: RESP 16
--- NOTE | 2016-05-14 23:13 | PN ---
Initial data is 89-year-old white male . He is a FULL CODE. Height 6 foot. His weight 63.5 kg his BSA 1.83 square squared, BMI 19 kg/sq. m. Allergy is unknown. Patient is seen today, evaluated in the temporary absence of Dr. Barajas or Dr. Checo Silverman who has been following the patient. The patient has underlying history of acute pancreatitis with abdominal pain at the time of the admission. The patient has also found to have on 10 of May UTI, which has been treated with Rocephin. PAST MEDICAL HISTORY: The patient has hypertension and he has a history of abdominal pain, associated with acute pancreatitis and history of GERD disease. The patient was seen in consultation during his hospitalization by GI team and at that time was dictation from Avis Whatley the PA from the GI. I do not see any notes from the gastrointestinal themselves but that is from the nurse practitioner. The patient also had during his presence ultrasound of the abdomen and ultrasound of the abdomen and was indicating normal liver length. The gallbladder is normal and common bile duct 1.1 cm and the right kidney was small with the right kidney 7.4 multiplied by 3.7 multiplied by 3.2 with the underlying history of chronic kidney disease as well. He had history of M.R.C.P. and his impression with the M.R.C.P. was mild ectasia of the common bile duct and that could be related to mild chronic gallbladder dysfunction. No filling defect was seen and there is clearing of the hydronephrosis compared in the old CT scan. He had found the 4.2 cm abdominal aneurysm. Prior to that he had 3.7 cm in the old CT scan. Subsequently patient was evaluated by vascular surgeon, Dr. Merritt who felt that that the patient could be followed as outpatient and he cleared him for discharge. Patient, however, has been no bowel movement since admission to the hospital and he has definitely constipation with the increased pressure on the abdomen was thought to be not a good idea and patient advised today to have the MiraLax as well as stool softener and ambulated to have a bowel movement at least to see how it is bowel movement working without any evidence of acute problems again with the underlying probability of chronic gallbladder dysfunction. He has his EKG was indicating wide QRS complexes with right bundle branch block. That was done on 10 of May. The patient had the last white count, WBC 12.5 with mild leukocytosis and hemoglobin is 11 with hematocrit 33.4 with the underlying mild anemia and moderate macrocytosis dated May 12. He has also on May 12 laboratory indicating that his carbon dioxide was a slightly below the normal range 20 and BUN 23, creatinine 1.43 and estimated glomerular filtration rate for non- was 47 with the blood sugar was 67, and lactic acid was 1.2 and calcium 8.1. His total bilirubin was one, ALT 72, which was improving from 141, and ALT was on the was 82. His total protein is 5.7 and albumin 2.7 and his lipid profile was indicating LDL 39 which was fine. His serum amylase on the was 1553 and lipase, was 11,578. He gradually improved on the the second day with amylase 246 and the lipase 472. We did not have any further testing subsequently. The patient has underlying serology for hepatitis A, B and C. All of them were negative. Dr. Silverman requested to see the patient today as the first day of service as well as evaluate as well as the patient requested to go home and we discussed that with him and his and advised that he should be have a bowel movement as well as the evaluation with the vascular surgeon and subsequently tomorrow getting the labs in the morning and will be ready to discharge him subsequently. His current vital signs indicating on the exam, his temperature 97 and his pulse rate is 71, respiratory rate 18 and his blood pressure was variable 139/59 and today was 157/70 with a mean arterial pressure 99. His oxygen saturation was 95% on 2 liters. However, patient do not have oxygen at home and he does not desaturated. He had a chest x-ray; however, on admission and chest x-ray was questionable possible right perihilar infiltrate chronic lung changes, calcified nodule or costochondral calcification in the right base and at that time the recommended CT scan. As the patient is progressively improving, the face to face examination today and he and his . He is conscious, alert, oriented and discussed with the patient and his and sequelae of the underlying severe constipation and with the presence of abdominal aneurysm and supposedly to clear him first as he has no bowel movement since admission and subsequently once he had a bowel movement he can go home and we started him on treatment. PHYSICAL EXAMINATION: GENERAL APPEARANCE: Patient as mentioned, conscious, alert, oriented. HEENT: Negative. HEAD: Normocephalic, atraumatic. OROPHARYNX: Negative. Neck was supple. No JVD. No thyromegaly. No lymphadenopathy. The chest was clear to auscultation and percussion and the heart was regular sinus rhythm and the abdomen was soft, nontender. No epigastric tenderness. No left upper quadrant tenderness. No suprapubic tenderness. EXTREMITIES: No edema and positive pulses and he is ambulatory. As mentioned that he had ( ) granuloma in the x-ray of the chest measuring 1.8 cm. FINAL IMPRESSION: 1. Underlying acute pancreatitis and we will see how much improvement with the lab tomorrow including a CBC with differential and lipase amylase as well as the ( ) profile. 2. Underlying urinary tract infection on and has been treated with Dr. Silverman and Dr. Barajas with ceftriaxone. 3. He has underlying questionable infiltrate. Currently no symptoms. We will check on his laboratory tomorrow and order was written for ambulation and discontinue the cardiac monitor. Hep lock and start the MiraLax as well as stool softener. Labs in a.m. with the plan to discharge within 24 hours.
[2016-05-15 08:04] VITALS: BP 157/81; PULSE 77; TEMP 97.3
[2016-05-15 08:42] LABS: Basophils % (A) 0 %; CH 34.4; Eosinophils # (A) 0.1 k/uL (0-0.7); Eosinophils % (A) 2 %; HCT 31.3 % (39.0-53.0); HGB 10.4 gm/dL (13.0-17.5); Luc # (Auto) 0.16; Luc % (Auto) 2; Lymphocytes # (A) 0.8 k/uL (1.0-4.8); Lymphocytes % (A) 12 %; MCH 33.9 pg (25.0-35.0); MCHC 33.3 g/dL (31.0-37.0); MCV 101.7 fL (80.0-100.0); Macrocytosis Slight; Mean Platelet Volume 7.7; Monocytes # (A) 0.5 k/uL (0-1.0); Monocytes % (A) 6 %; Neutrophils # (A) 5.6 k/uL (1.3-7.7); Neutrophils % (A) 78 %; RBC 3.07 m/uL (4.30-5.90); RDW 13.4 % (11.5-15.5); WBC 7.2 k/uL (3.8-10.6); WBC (Perox) 7.69
[2016-05-15 08:55] LABS: ALT 60 U/L (21-72); AST 67 U/L (17-59); Alkaline Phosphatase 104 U/L (38-126); Amylase 31 U/L (30-110); Anion Gap 11 mmol/L; Blood Urea Nitrogen 17 mg/dL (9-20); Calcium 8.4 mg/dL (8.4-10.2); Carbon Dioxide 21 mmol/L (22-30); Chloride 108 mmol/L (98-107); Glucose 86 mg/dL (74-99); Non-African American GFR(MDRD) 58 (>60 ml/min/1.73 sqM); Potassium 3.8 mmol/L (3.5-5.1); Sodium 140 mmol/L (137-145); Total Bilirubin 1.3 mg/dL (0.2-1.3); Total Protein 6.2 g/dL (6.3-8.2)
[2016-05-15] MEDS: METOPROLOL SUCCINATE (ER) 50 MG TAB.ER.24H PO SCH (08:57)
[2016-05-15] MEDS: FOLIC ACID-VIT B COMPLEX-VIT C 1 CAP PO SCH (08:58)
[2016-05-15] MEDS: FOLIC ACID 1 MG TAB PO SCH (08:58)
[2016-05-15] MEDS: ASPIRIN 81 MG CHEW PO SCH (08:58)
[2016-05-15] MEDS: LOSARTAN 50 MG TAB PO SCH (08:58)
[2016-05-15] MEDS: POLYETHYLENE GLYCOL 3350 17 GM POWD.PACK PO SCH (08:59)
[2016-05-15] MEDS: DOCUSATE 100 MG CAP PO SCH (08:59)
[2016-05-15] MEDS ORDERED: PANTOPRAZOLE 40 MG TABLET PO SCH (09:00)
--- NOTE | 2016-05-15 09:56 | DS ---
DATE OF ADMISSION: 05/10/2016 DATE OF DISCHARGE: DATA: He is an 89-year-old, white male, . He is FULL CODE. His allergy is unknown. DATE OF SERVICE: 05/15/2016. PCP and the attending physician: Dr. Barajas. FINAL DIAGNOSES: 1. Acute pancreatitis with elevated lipase and amylase. The etiology is unclear and recurrent. Cleared on discharge with normal lipase on discharge. 2. Urinary tract infection, which found to be present on admission, treated with Rocephin IV antibiotic. 3. History of gastroesophageal reflux disease. 4. Hypertension. 5. Abdominal aneurysm, 4.2 cm with increase from 3.7, cleared by vascular surgeon Dr. Merritt. 6. Right bundle branch block. 7. Leukocytosis on admission, has been resolved on discharge. 8. Chronic anemia. 9. Underlying questionable chronic kidney disease. 10. Atrophic right kidney without hydronephrosis. PROCEDURE DONE: MRCP. CONSULTATION: GI and vascular surgeon requested by Dr. Silverman/Dr. Barajas. HOSPITAL COURSE: Patient during his hospitalization followed by Dr. Silverman in absence of Dr. Barajas and subsequently I received the service yesterday on the April. Subsequently laboratory was reordered for clarification as well as stability of his illness and today labs were indicating that his white count now 7.2 on admission was 12.5. His hemoglobin is 10.4 and hematocrit 31.3. The patient had normal kidney function with the improvement of his renal function from admission. The BUN was 23 and creatinine 1.43 on discharge was BUN 17 and creatinine 1.19 with the estimated glomerular filtration rate was 58. His liver enzymes were indicating markedly improvement with the AST 67 and ALT 60, which is normalized. His total protein is 6.2 and his amylase 31 and lipase 138. During his hospital stay, he had hepatitis serology which was negative hepatitis A IgM, negative hepatitis antigen and negative hepatitis B core IgM and hepatitis C IgG antibody was negative. The face to face examination, patient was conscious, alert, oriented x3. His at bedside. He is ambulatory and he had 2 bowel movements and also seen by Dr. Merritt, the vascular surgeon and cleared him for discharge and to follow him as outpatient. HEENT: Head was normocephalic and atraumatic. Pupils were equal, reactive. Oropharynx was negative. Neck was supple. CHEST: Clear to auscultation and percussion. No wheezes, no rhonchi. HEART: The heart was regular sinus rhythm and no evidence of chest pain. ABDOMEN: Soft. Positive bowel sounds. No tenderness in the 4 quadrants. EXTREMITIES: No edema. Positive pulses with good perfusion. Neurologically stable with moving 4 extremities and ambulatory and no lateralizing sign. No neuro deficit. The underlying questionable chronic kidney disease was present. His right kidney 7.4 x 3.7 x 3.2 by the ultrasound and indicating that the patient had atrophic right kidney without hydronephrosis. The patient currently stable, ambulatory, able to eat his regular meals and had a bowel movement and no abdominal pain and will be discharged home today to be followed by Dr. Barajas after his return on May 24. Also, he will be followed by the GI consultant intern as well as the vascular consultant intern. I discussed that with the patient today if he has any further questions or any other consideration, he can call my office and we will see him as well until return of Dr. Barajas.
--- NOTE | 2016-05-21 18:02 | PN ---
DATE OF SERVICE: 05/21/2016 This is an 89-year-old white male who was admitted with acute pancreatitis and markedly elevated serum amylase and lipase. He also was found to have a positive blood in the gastric fluid. She was found to be extremely dehydrated and patient was admitted to the hospital for further evaluation and treatment. The patient was given IV fluids and he was placed on clear liquids. She was seen by Dr. Ku in consultation. His pain is being controlled with IV Dilaudid. Repeat serum amylase and lipase showed some improvement. Dr. Ku is going to get M.R.C.P. to further evaluate the pancreas and the biliary system. Patient's vital signs are otherwise stable. Since he has no acute cardiorespiratory problems. The diagnosis, prognosis, and therapeutic plans were discussed again with the patient and also with his today. Dr. Ku is following the patient.
--- NOTE | 2016-05-21 18:28 | PN ---
DATE OF SERVICE: 05/13/2016 This is an 89-year-old white male who was admitted with acute pancreatitis. At the time of admission patient had very markedly elevated serum amylase which was 2011 and lipase more than 20,000. Patient was placed on clear liquids and pain was controlled with IV Dilaudid. Patient was seen by Dr. Ku and an MRI was done which was basically unremarkable except that patient was noted to have an abdominal aortic aneurysm which has increased in size, but patient is asymptomatic with regard to this. Dr. Ku is still following the patient and possibly will consider doing an ERCP. Patient's vital signs are stable. He has no chest pain or shortness of breath and he has no acute cardiorespiratory problems. The finding of abdominal aortic aneurysm was discussed with the patient and also with his . Will get a vascular consultation. Dr. Knox has been consulted. Prognosis is guarded. Will continue current treatment. I am going to be out of town. Dr. Lloyd is going to cover for me. He will follow the patient for his medical problems starting today.
== END 2016-05-15 10:05 | disposition home or self-care (01) | DRG 439 ==
LOC: EC 21:21 → 5ONC 23:48
PROVIDERS: ADMIT Internal Medicine; ATTEND Internal Medicine
DX: K85.90 Acute pancreatitis without necrosis or infection, unspecified (principal); N39.0 Urinary tract infection, site not specified; E86.0 Dehydration; I13.10 Hypertensive heart and chronic kidney disease without heart failure, with stage 1 through stage 4 chronic kidney disease, or unspecified chronic kidney disease; Z68.1 Body mass index [BMI] 19.9 or less, adult; D64.9 Anemia, unspecified; E78.5 Hyperlipidemia, unspecified; E78.00 Pure hypercholesterolemia, unspecified; I25.10 Atherosclerotic heart disease of native coronary artery without angina pectoris; I45.10 Unspecified right bundle-branch block; I71.4 Abdominal aortic aneurysm, without rupture; K21.9 Gastro-esophageal reflux disease without esophagitis; N18.9 Chronic kidney disease, unspecified; Z79.82 Long term (current) use of aspirin; Z95.5 Presence of coronary angioplasty implant and graft; Z79.899 Other long term (current) drug therapy
CPT/HCPCS: 36415; 71020; 74181; 76705; 80053; 80061; 80074; 81001; 82150; 82271; 82550; 82553; 83605; 83690; 83735; 84484; 85025; 85610; 85730; 93005; 96365; 96375; 96376; 99285

== ENCOUNTER 2016-05-28 05:29 | Emergency (ER) | payer MEDICARE, BC ==
[2016-05-28 06:44] LABS: Calcium 9.4 mg/dL (8.4-10.2); Magnesium 1.9 mg/dL (1.6-2.3); Potassium 4.3 mmol/L (3.5-5.1); Total Bilirubin 1.2 mg/dL (0.2-1.3); Total Protein 7.2 g/dL (6.3-8.2)
[2016-05-28 06:48] LABS: INR 1.2 (<1.1); Partial Thromboplastin Time 24.6 sec (22.0-30.0); Prothrombin Time 11.8 sec (9.0-12.0)
[2016-05-28 06:51] LABS: Basophils # (A) 0.1 k/uL (0-0.2); Basophils % (A) 1 %; CH 33.8; Eosinophils # (A) 0.2 k/uL (0-0.7); Eosinophils % (A) 2 %; HCT 34.3 % (39.0-53.0); HDW 2.92; HGB 11.3 gm/dL (13.0-17.5); Luc # (Auto) 0.29; Luc % (Auto) 4; Lymphocytes # (A) 2.4 k/uL (1.0-4.8); Lymphocytes % (A) 29 %; MCH 33.9 pg (25.0-35.0); MCHC 32.9 g/dL (31.0-37.0); MCV 102.9 fL (80.0-100.0); Macrocytosis Slight; Monocytes # (A) 0.4 k/uL (0-1.0); Monocytes % (A) 5 %; Neutrophils # (A) 4.7 k/uL (1.3-7.7); Neutrophils % (A) 58 %; RBC 3.33 m/uL (4.30-5.90); RDW 13.8 % (11.5-15.5); WBC (Perox) 8.42
[2016-05-28 06:53] LABS: Creatine Kinase 27 U/L (55-170)
[2016-05-28 07:06] LABS: Creatine Kinase MB 0.7 ng/mL (0.0-2.4); Troponin I <0.012 ng/mL (0.000-0.034)
--- NOTE | 2016-05-28 07:09 | XR ---
PROCEDURE: FILM CXR 1 VIEW HISTORY: 89-year-old male with weakness. COMPARISON: Chest radiograph 05/10/2016 TECHNIQUE: Frontal view of the chest was obtained. FINDINGS: Stable cardiomediastinal silhouette. Bibasilar atelectasis/consolidation. Bones are similar to prior. IMPRESSION: Bibasilar atelectasis/consolidation.
--- NOTE | 2016-05-28 08:11 | ED ---
General Adult HPI - General Chief complaint: Weakness Stated complaint: SYNCOPE Time Seen by Provider: 05/28/16 07:23 Source: patient, family, RN notes reviewed, old records reviewed Mode of arrival: EMS Limitations: no limitations - History of Present Illness Initial comments: This is an 89-year-old year to the ER for evaluation. Patient presents to ER with today with feeling weak, patient left powerless salicylate before and patient has just weakness that he felt, him and his had difficulty eating preparing food when they were losing heat and therefore were cold. Patient really denies any specific complaints of chest patient was rather bowel pain. - Related Data Home Medications Medication Instructions Recorded Confirmed Aspirin EC [Ecotrin Low Dose] 81 mg PO DAILY 05/10/16 05/28/16 B Complex & C No.20/Folic Acid 1 mg PO DAILY 05/10/16 05/28/16 [Nephrocaps Softgel] Folic Acid 0.4 mg PO HS 05/10/16 05/28/16 Losartan Potassium [Cozaar] 50 mg PO DAILY@1200 05/10/16 05/28/16 Metoprolol Succinate (ER) [Toprol 50 mg PO DAILY 05/10/16 05/28/16 XL] Atorvastatin [Lipitor] 10 mg PO HS 05/11/16 05/28/16 Vit A,C & E/Lutein/Minerals 1 tab PO DAILY@1200 05/28/16 05/28/16 [Ocuvite with Lutein Tablet] Allergies Allergy/AdvReac Type Severity Reaction Status Date / Time No Known Allergies Allergy Verified 05/28/16 07:39 Review of Systems ROS Statement: Those systems with pertinent positive or pertinent negative responses have been documented in the HPI. ROS Other: All systems not noted in ROS Statement are negative. Past Medical History Past Medical History: Coronary Artery Disease (CAD), Hyperlipidemia, Hypertension Additional Past Medical History / Comment(s): . History of Any Multi-Drug Resistant Organisms: None Reported Additional Past Surgical History / Comment(s): cataract, left hip Past Anesthesia/Blood Transfusion Reactions: No Reported Reaction Past Psychological History: No Psychological Hx Reported Smoking Status: Never smoker Past Alcohol Use History: None Reported Past Drug Use History: None Reported - Past Family History Son(s) Family Medical History: No Reported History General Exam Limitations: no limitations General appearance: alert, in no apparent distress Head exam: Present: atraumatic, normocephalic, normal inspection Eye exam: Present: normal appearance, PERRL, EOMI. Absent: scleral icterus, conjunctival injection, periorbital swelling ENT exam: Present: normal exam, mucous membranes moist Neck exam: Present: normal inspection. Absent: tenderness, meningismus, lymphadenopathy Respiratory exam: Present: normal lung sounds bilaterally. Absent: respiratory distress, wheezes, rales, rhonchi, stridor Cardiovascular Exam: Present: regular rate, normal rhythm, normal heart sounds. Absent: systolic murmur, diastolic murmur, rubs, gallop, clicks GI/Abdominal exam: Present: soft, normal bowel sounds. Absent: distended, tenderness, guarding, rebound, rigid Extremities exam: Present: normal inspection, full ROM, normal capillary refill. Absent: tenderness, pedal edema, joint swelling, calf tenderness Back exam: Present: normal inspection Neurological exam: Present: alert, oriented X3, CN II-XII intact Psychiatric exam: Present: normal affect, normal mood Skin exam: Present: warm, dry, intact, normal color. Absent: rash Course Vital Signs 05/28/16 05/28/16 05:33 08:38 Temperature 96.4 F L 97.2 F L Pulse Rate 55 L 75 Respiratory 18 14 Rate Blood Pressure 106/52 113/55 O2 Sat by Pulse 96 97 Oximetry - Reevaluation(s) Reevaluation #1: Dilation of patient he has no complaints, states he has occupancy set up at local hotel and he would like to be discharged Medical Decision Making - Medical Decision Making 89 male the ER for evaluation of weakness, patient is feeling better at this time. Does have a place ago even with loss of power in can be discharged home - Lab Data Result diagrams: 05/28/16 05:41 05/28/16 05:41 Lab Results 05/28/16 05/28/16 05/28/16 Range/Units 05:41 05:41 05:41 WBC 8.0 (3.8-10.6) k/uL RBC 3.33 L (4.30-5.90) m/uL Hgb 11.3 L (13.0-17.5) gm/dL Hct 34.3 L (39.0-53.0) % MCV 102.9 H (80.0-100.0) fL MCH 33.9 (25.0-35.0) pg MCHC 32.9 (31.0-37.0) g/dL RDW 13.8 (11.5-15.5) % Plt Count 451 H (150-450) k/uL Neutrophils % 58 % Lymphocytes % 29 % Monocytes % 5 % Eosinophils % 2 % Basophils % 1 % Neutrophils # 4.7 (1.3-7.7) k/uL Lymphocytes # 2.4 (1.0-4.8) k/uL Monocytes # 0.4 (0-1.0) k/uL Eosinophils # 0.2 (0-0.7) k/uL Basophils # 0.1 (0-0.2) k/uL Macrocytosis Slight PT (9.0-12.0) sec INR (<1.1) APTT (22.0-30.0) sec Sodium 140 (137-145) mmol/L Potassium 4.3 (3.5-5.1) mmol/L Chloride 103 (98-107) mmol/L Carbon Dioxide 24 (22-30) mmol/L Anion Gap 13 mmol/L BUN 18 (9-20) mg/dL Creatinine 1.40 H (0.66-1.25) mg/dL Est GFR (MDRD) Af Amer 58 (>60 ml/min/1.73 sqM) Est GFR (MDRD) Non-Af 48 (>60 ml/min/1.73 sqM) Glucose 119 H (74-99) mg/dL Calcium 9.4 (8.4-10.2) mg/dL Magnesium 1.9 (1.6-2.3) mg/dL Total Bilirubin 1.2 (0.2-1.3) mg/dL AST 36 (17-59) U/L ALT 45 (21-72) U/L Alkaline Phosphatase 80 (38-126) U/L Total Creatine Kinase 27 L (55-170) U/L CK-MB (CK-2) 0.7 (0.0-2.4) ng/mL CK-MB (CK-2) Rel Index 2.6 Troponin I <0.012 (0.000-0.034) ng/mL Total Protein 7.2 (6.3-8.2) g/dL Albumin 3.8 (3.5-5.0) g/dL 03/09/17 Range/Units 05:41 WBC (3.8-10.6) k/uL RBC (4.30-5.90) m/uL Hgb (13.0-17.5) gm/dL Hct (39.0-53.0) % MCV (80.0-100.0) fL MCH (25.0-35.0) pg MCHC (31.0-37.0) g/dL RDW (11.5-15.5) % Plt Count (150-450) k/uL Neutrophils % % Lymphocytes % % Monocytes % % Eosinophils % % Basophils % % Neutrophils # (1.3-7.7) k/uL Lymphocytes # (1.0-4.8) k/uL Monocytes # (0-1.0) k/uL Eosinophils # (0-0.7) k/uL Basophils # (0-0.2) k/uL Macrocytosis PT 11.8 (9.0-12.0) sec INR 1.2 (<1.1) APTT 24.6 (22.0-30.0) sec Sodium (137-145) mmol/L Potassium (3.5-5.1) mmol/L Chloride (98-107) mmol/L Carbon Dioxide (22-30) mmol/L Anion Gap mmol/L BUN (9-20) mg/dL Creatinine (0.66-1.25) mg/dL Est GFR (MDRD) Af Amer (>60 ml/min/1.73 sqM) Est GFR (MDRD) Non-Af (>60 ml/min/1.73 sqM) Glucose (74-99) mg/dL Calcium (8.4-10.2) mg/dL Magnesium (1.6-2.3) mg/dL Total Bilirubin (0.2-1.3) mg/dL AST (17-59) U/L ALT (21-72) U/L Alkaline Phosphatase (38-126) U/L Total Creatine Kinase (55-170) U/L CK-MB (CK-2) (0.0-2.4) ng/mL CK-MB (CK-2) Rel Index Troponin I (0.000-0.034) ng/mL Total Protein (6.3-8.2) g/dL Albumin (3.5-5.0) g/dL - Radiology Data Radiology results: report reviewed (CHest X ray Is negative for acute disease), image reviewed Disposition Clinical Impression: Dehydration, Weakness Disposition: HOME SELF-CARE Condition: Good Instructions: Weakness (ED) Referrals: Justice Barajas MD [Primary Care Provider] - 1-2 days
[2016-05-28 08:39] VITALS: BP 113/55; PULSE 75; RESP 14; TEMP 97.2
== END 2016-05-28 08:40 | disposition home or self-care (01) ==
LOC: EC 05:29
DX: E86.0 Dehydration (principal); R10.9 Unspecified abdominal pain; E78.5 Hyperlipidemia, unspecified; I10 Essential (primary) hypertension; I25.10 Atherosclerotic heart disease of native coronary artery without angina pectoris; Z79.82 Long term (current) use of aspirin; Z79.899 Other long term (current) drug therapy
CPT/HCPCS: 36415; 71010; 80053; 82550; 82553; 83735; 84484; 85025; 85610; 85730; 93005; 99285